=== PATIENT | male | born 1985 | race Hispanic/Latino ===

== ENCOUNTER 2017-04-01 19:18 | Emergency (ER) | payer SELFPAY ==
[2017-04-01 19:27] VITALS: BP 140/84; PULSE 64; RESP 19; TEMP 98.2; O2SAT 100
--- NOTE | 2017-04-01 19:41 | ED PDOC ---
HPI: Headache Time Seen by Provider: 04/01/17 19:45 Chief Complaint (Nursing): Headache Chief Complaint (Provider): HEADACHE History Per: Patient History/Exam Limitations: no limitations Onset/Duration Of Symptoms: Days (1) Current Symptoms Are (Timing): Still Present Severity: Moderate Quality: Pressure, "Pain" Preceeding Symptoms: None Associated Symptoms: denies: Photophobia, Blurred Vision, Nausea, Vomiting, Extremity Weakness Additional History Per: Patient Additional Complaint(s): 31 y/o male complaining of moderate to severe headache described as pressure and pain that began today when he woke from sleep. He tried Tylenol and Afrin without relief. Patient also complains of nasal congestion for the last few days and has been taking Augmentin x3 days. His nasal congestion has been improving. No fever, chills, numbness, weakness, photophobia, trouble speaking, confusion, or other complaint. He does not have a PMD at this time as he is changing insurances. Past Medical History Reviewed: Historical Data, Nursing Documentation, Vital Signs Vital Signs: Last Vital Signs Temp 98.2 F 04/01/17 19:23 Pulse 64 04/01/17 19:23 Resp 19 04/01/17 19:23 BP 140/84 04/01/17 19:23 Pulse Ox 100 04/01/17 19:23 - Family History Family History: States: No Known Family Hx - Home Medications Home Medications: Ambulatory Orders Medication Instructions Recorded Amoxicillin/Potassium Clav 2 tab PO BID #14 tab.er.12h 04/01/17 [Augmentin Xr 1,000-62.5 Tab] Lactobacillus Acidophilus 1 each PO DAILY #14 tablet 04/01/17 [Probiotic Acidophilus] Naproxen [Naprosyn] 500 mg PO Q12 PRN #14 tablet 04/01/17 Pseudoephedrine [Sudafed Tab] 60 mg PO Q6 PRN #24 tab 04/01/17 - Allergies Allergies/Adverse Reactions: Allergies Allergy/AdvReac Type Severity Reaction Status Date / Time No Known Allergies Allergy Verified 04/01/17 19:23 Review of Systems ROS Statement: Except As Marked, All Systems Reviewed And Found Negative Physical Exam - Physical Exam Appears: Positive for: Well, Non-toxic, No Acute Distress Skin: Positive for: Normal Color, Warm, Dry Eye Exam: Positive for: Normal appearance ENT: Positive for: Pharynx Is (clear), Nasal Congestion, Other (frontal sinus tenderness, maxillary sinus swelling noted with mild erythema) Neck: Positive for: Normal, Painless ROM Cardiovascular/Chest: Positive for: Regular Rate, Rhythm Respiratory: Positive for: Normal Breath Sounds Extremity: Positive for: Normal ROM - Laboratory Results Result Diagrams: 04/01/17 20:00 04/01/17 20:00 - ECG O2 Sat by Pulse Oximetry: 100 (RA) Pulse Ox Interpretation: Normal Medical Decision Making Medical Decision Making: Impression: Headache Plan: - Toradol - CT Head Patient given Reglan, Sudafed, and IVF. CT reviewed and showed sinusitis. Encouraged him to continue Augmentin and if he continues to be symptomatic recommend HIGHER DOSE 2G BID GIVEN IN RX - prescription given. Naprosyn or Tylenol for pain. Try Sudafed, limit Afrin. Follow up with ENT, referral given, if no improvement. All questions answered. Patient discharged. Scribe Attestation Documented by Nithya Grey acting as a scribe for Teresa Hartley PA-C. Provider Attestation All medical record entries made by the Scribe were at my direction and personally dictated by me. I have reviewed the chart and agree that the record accurately reflects my personal performance of the history, physical exam, medical decision making, and the department course for this patient. I have also personally directed, reviewed, and agree with the discharge instructions and disposition. Disposition - Clinical Impression Clinical Impression: Sinusitis - Patient ED Disposition Is Patient to be Admitted: No Doctor Will See Patient In The: Office Counseled Patient/Family Regarding: Studies Performed, Diagnosis, Need For Followup - Disposition Referrals: Milton Craven MD [Staff Provider] - Disposition: Routine/Home Disposition Time: 21:46 Condition: FAIR Prescriptions: Amoxicillin/Potassium Clav [Augmentin Xr 1,000-62.5 Tab] 2 tab PO BID #14 tab.er.12h Lactobacillus Acidophilus [Probiotic Acidophilus] 1 each PO DAILY #14 tablet Naproxen [Naprosyn] 500 mg PO Q12 PRN #14 tablet PRN Reason: Pain, Severe (8-10) Pseudoephedrine [Sudafed Tab] 60 mg PO Q6 PRN #24 tab PRN Reason: Nasal Congestion Instructions: Sinusitis (ED) Forms: [employer] [facility] ([place]rainian), [facility] ED School/Work Excuse
[2017-04-01] MEDS ORDERED: Sodium Chloride 0.9% 1,000 ML IV STA (19:48)
[2017-04-01 20:14] LABS: BASO % 0.5 % (0.0-2.0); EOS # 0.5 K/uL (0.0-0.7); EOS % 5.4 % (0.0-4.0); HEMATOCRIT 47.3 % (35.0-51.0); LYMPH # 1.5 K/uL (1.0-4.3); LYMPH % 14.9 % (20.0-40.0); MEAN CELL VOLUME 92.8 fl (80.0-94.0); MEAN CORPUSCULAR HEMOGLOBIN 31.8 pg (27.0-31.0); MEAN CORPUSCULAR HGB CONC 34.3 g/dL (33.0-37.0); MEAN PLATELET VOLUME 8.9 fl (7.2-11.7); MONO # 0.7 K/uL (0.0-0.8); MONO % 6.4 % (0.0-10.0); NEUT # 7.4 K/uL (1.8-7.0); NEUT % 72.8 % (50.0-75.0); NRBC % 1.3 % (0.0-0.0); RED CELL DISTRIBUTION WIDTH 13.4 % (11.5-14.5); WHITE BLOOD COUNT 10.1 K/uL (4.8-10.8)
[2017-04-01 20:21] LABS: BLOOD UREA NITROGEN 13 mg/dl (9-20); CALCIUM 9.6 mg/dL (8.4-10.2); CARBON DIOXIDE 25 mmol/L (22-30); CHLORIDE 103 mmol/L (98-107); GFR AFRICAN-AMERICAN > 60; GLUCOSE,RANDOM 110 mg/dL (75-110); SODIUM 144 mmol/l (132-148)
--- NOTE | 2017-04-01 21:25 | CT ---
EXAM: CT Head Without Intravenous Contrast CLINICAL HISTORY: 31 years old, male; Pain; Headache; Other: Flower's running nose congestion; Patient HX: Sinus cavity included as ordered; Additional info: Head/facial pain TECHNIQUE: Axial computed tomography images of the head/brain without intravenous contrast. All CT scans at this facility use one or more dose reduction techniques, viz.: automated exposure control; ma/kV adjustment per patient size (including targeted exams where dose is matched to indication; i.e. head); or iterative reconstruction technique. Coronal and sagittal reformatted images were created and reviewed. COMPARISON: No relevant prior studies available. FINDINGS: Brain: No intracranial hemorrhage. No mass. No definite edema. Ventricles: No hydrocephalus. Bones/joints: No acute fracture. Soft tissues: Unremarkable. Sinuses: Near-complete opacification of ethmoid sinuses. Complete opacification of LEFT frontal sinus. Mild mucosal thickening of RIGHT frontal sinus. Moderate mucosal thickening/fluid of RIGHT maxillary sinus. Moderate mucosal thickening/retention cyst of LEFT maxillary sinus. Extensive thickening/fluid of RIGHT sphenoid sinus. Mild mucosal thickening of LEFT sphenoid sinus. Mastoid air cells: No mastoid effusion. Orbits: Unremarkable as visualized. IMPRESSION: 1. No acute intracranial abnormality. 2. Sinus disease.
== END 2017-04-01 21:46 | disposition home or self-care (01) ==
LOC: H.ER 19:18
DX: J32.9 Chronic sinusitis, unspecified (principal)
CPT/HCPCS: 70450; 80048; 85025; 96361; 96374; 96375; 99282; J1885; J2765; J7040